=== PATIENT | female | born 1945 | race Caucasian/White ===

== ENCOUNTER 2019-01-19 21:40 | Inpatient (IN) | payer MEDICARE, OTHER ==
[~2019-01-19] VITALS: Ht 162.6 cm; Wt 58.1 kg
[~2019-01-19 21:40] MED LIST: ACTOS 45 MG45 M1 PO; ADULT LOW DOSE81 MG PO; ALTOPREV40 M1 PO; ATIVAN1 MG PO; CEPHALEXIN 500500 M3 PO; CIPROFLOXACIN500 M1 PO; EFFEXOR XR150 MG PO; FLAGYL500 MG PO; GLIPIZIDE; GLIPIZIDE 10 MG10 MG PO; HYDROCODONE-AP1 EAC6 PO; MACROBID 100 M100 M2 PO; MELOXICAM7.5 MG PO; METFORMIN 500500 MG PO; METFORMIN HCL500 MG PO; NAPROSYN500 MG PO; NORCO 5-325 TA1 EACH PO; OMEPRAZOLE 20 M20 M1 PO; PREDNISONE 10 M10 MG PO; SUPER B COMPLE1 EAC2 PO; VENTOLIN HFA 1818 GM INH; VITAMIN D35000 UNI1 PO; VITAMINS; ZPAK PO
[2019-01-19 21:55] VITALS: BP 114/66
[2019-01-19 22:13] LABS: ABSOLUTE BASOPHILS 0.1 thou/uL (0.0-0.2); ABSOLUTE LYMPHOCYTES 1.2 thou/uL (0.8-5.3); ABSOLUTE MONOCYTES 0.6 thou/uL (0.0-1.2); ABSOLUTE NEUTROPHILS 11.1 thou/uL (1.6-8.1); BASOPHILS 0.7 %; EOSINOPHILS 0.1 %; HEMATOCRIT 41.2 % (37.0-47.0); HEMOGLOBIN 13.7 gm/dL (12.0-15.0); LYMPHOCYTES 9.4 %; MCH 29.2 pg (26.0-34.0); MCHC 33.2 g/dL (28.0-37.0); MONOCYTES 4.9 %; MPV 8.2 fl. (7.2-11.1); NUCLEATED RBCS 0 /100WBC; PLATELET COUNT* 399 thou/uL (150-400); POLYS 84.9 %; RBC 4.68 mil/uL (4.20-5.00); RDW-CV 13.1 % (10.5-14.5)
[2019-01-19 22:25] LABS: APTT 24.4 Seconds (25.0-31.3); INR 1.1; PROTIME 10.8 Seconds (9.20-11.50)
[2019-01-19 22:32] LABS: ALBUMIN 2.3 g/dL (3.4-5.0); ALKALINE PHOSPHATASE 169 U/L (46-116); ANION GAP 10 mmol/L (7-16); BUN 24 mg/dL (7-18); CALCIUM 9.3 mg/dL (8.5-10.1); CHLORIDE 92 mmol/L (98-107); CO2 29 mmol/L (21-32); CREATININE 1.4 mg/dL (0.6-1.3); MAGNESIUM 1.9 mg/dL (1.8-2.4); POTASSIUM 3.9 mmol/L (3.5-5.1); SGOT 11 U/L (15-37); SGPT 13 U/L (30-65); SODIUM 131 mmol/L (136-145); TOTAL BILIRUBIN 0.3 mg/dL (<0.1-1.0); TOTAL PROTEIN 7.7 g/dL (6.4-8.2)
[2019-01-19 22:33] LABS: GLUCOSE 770 mg/dL (70-99)
[2019-01-19 22:35] VITALS: BP 112/80
[2019-01-19 22:49] LABS: CHOLESTEROL 171 mg/dL (<200); HDL CHOLESTEROL 22 mg/dL (>40); LDL CHOLESTEROL 95 mg/dL (<100); TC:HDL 7.8 Ratio (Not establshd); TRIGLYCERIDE 273 mg/dL (<150); VLDL 55 mg/dL (<40)
[2019-01-19 22:53] LABS: SERUM ASSESSMENT Slight Lipemia
[2019-01-20] VITALS (26 sets, daily range): BP systolic 95–153; BP diastolic 51–114
[2019-01-20 01:19] LABS: HEMOGLOBIN 12.7 gm/dL (12.0-15.0); MCH 28.6 pg (26.0-34.0); MCHC 33.5 g/dL (28.0-37.0); MCV 85.5 fL (80.0-100.0); MPV 8.1 fl. (7.2-11.1); RBC 4.44 mil/uL (4.20-5.00); WBC 14.1 thou/uL (4.0-11.0)
[2019-01-20 01:32] LABS: CALCIUM 8.9 mg/dL (8.5-10.1); POTASSIUM 3.9 mmol/L (3.5-5.1); TOTAL BILIRUBIN 0.4 mg/dL (<0.1-1.0); TOTAL PROTEIN 7.1 g/dL (6.4-8.2)
[2019-01-20 01:35] LABS: TROPONIN-I LEVEL 0.61 ng/mL (<0.06)
--- NOTE | 2019-01-20 06:13 | NUR ---
ADMITTED TO ICU BED 4 AT 0010, SEE ASSESSMENTS. R GROIN ARTERIAL SHEATH IN PLACE UPON ARRIVAL TO UNIT, BUHR MILL OPERATOR RETURNED AT 0200 TO REMOVE SHEATH. HOMEOSTASIS OBTAINED APPROXIMATELY 0230, DRSG C/D/I SINCE THAT TIME. INSULIN GTT INITIATED AT 0115 WHEN STAT BG RESULTS WERE RECEIVED, NS AT 100ML/HR UNTIL BG REACHES 250 THEN TO BE CHANGED TO D5NS AT 100ML/HR. BG MONITORED Q1HR AND INSULIN GTT TITRATED PER PROTOCOL. C/O ABD PAIN TREATED WITH PRN MORPHINE X2 WITH RELIEF OF SYMPTOMS. PT HAS BEEN REPOSITIONED Q2HR WITH SLIGHT TILTING DUE TO RLE IMMOBILIZATION. PT EDUCATED ON IMMOBILIZATION AND THAT IT WILL AT 0730, VERBALIZED UNDERSTANDING. CALL LIGHT WITHIN REACH.
--- NOTE | 2019-01-20 06:36 | NUR ---
CURRENT BG 253, IVF CHANGED TO D5NS PER PROTOCOL
[2019-01-20 09:40] LABS: URINE BLOOD 3+ (Negative); URINE CLARITY CLOUDY; URINE COLOR YELLOW; URINE GLUCOSE-RANDOM 2+ (Negative); URINE KETONES NEGATIVE (Negative); URINE NITRITE-REFLEX NEGATIVE (Negative); URINE PROTEIN 2+ (Negative); URINE UROBILINOGEN 0.2 E.U./dl (0.2-1.0)
[2019-01-20 09:52] LABS: URINE BILIRUBIN 1+ (Negative); URINE LEUKOCYTES-REFLEX 2+ (Negative)
[2019-01-20 09:53] LABS: ICTOTEST (BILI CONFIRMATORY) Negative (Negative)
[2019-01-20 10:11] LABS: SQUAMOUS 4-10 Moderate /LPF (0-3); URINE WBC-REFLEX >25 Many /HPF (0-5)
[2019-01-20 10:12] LABS: BACTERIA-REFLEX >30 Many /HPF (None Seen); CASTS None Seen /LPF (None Seen); CRYSTALS None Seen /LPF (None Seen); URINE RBC >20 Many /HPF (0-2)
--- NOTE | 2019-01-20 10:26 | EKG ---
[place] [address] ELECTROCARDIOGRAM REPORT Name: DEV TRACY Room: [address] ADM IN .R.#: [id number] Admission: 01/19/19 Attend Phys: Chelsey Hair MD Discharge: Date of : 49 Report #: [id number] THIS REPORT FOR: //name// [facility] ED Test Date: 2019-01-19 Test Time: 21:46:42 Pat Name: DEV TRACY Department: Room: [facility] Gender: F Director Shopper Marketing: 10 : 1945 Requested By: Peggy Pedro Order Number: [id number] MD: Beck Hooks Measurements Intervals [place] Rate: 94 P: -21 IA: 169 QRS: 3 QRSD: 101 T: 89 QT: 338 QTc: 423 Interpretive Statements Sinus rhythm Inferior infarct, acute (RCA) Probable anterior infarct, old Lateral leads are also involved Probable RV involvement, suggest recording right precordial leads No previous ECG available for comparison Electronically Signed On 01-20-2019 10:25:46 RAG WILLOW OPERATOR by Beck Hooks [email or web address] <ELECTRONICALLY SIGNED> By: Beck Hooks MD, FACC 01/20/19 1025 2146 Beck Hooks MD, [facility] /EPI
--- NOTE | 2019-01-20 11:01 | CARD ---
[address] [address] CARDIAC CATH REPORT Name: DEV TRACY Room: [address] IN [facility].#: [id number] Admission: 01/19/19 Attend Phys: Chelsey Hair MD Discharge: Date of : 49 Report #: [id number] THIS REPORT FOR: //name// APPROVED REPORT Study performed: 01/19/2019 22:22:40 Patient Details Patient Status: ED Room #: The patient is a 73 year-old female Event Personnel Abdoul Germain Gas Well Pumper, Isa Doherty RN, [place], Brad RCIS ScrubJony Jessie RTR Monitor Procedures Performed Art Access - R femoral artery Left Heart Cath w/or w/o Coronaries [facility] w/wo Plasty Single RCA Hemostasis with Manual pressure Indication STEMI (>0 to less than or equal to 6 hours), Dyspnea, Chest pain, The patient presented with right lower abdominal discomfort, noted to have ST segment elevation in the inferolateral leads on the electrocardiogram. Risk Factors Chronic Lung DiseaseHypercholesterolemia, Diabetes Tobacco History () Procedure Narrative The patient was brought emergently to the Cardiac Catheterization Laboratory and was prepped and draped in a sterile manner. A 6fr Ultimum Sheath sheath was inserted into the right femoral artery. Coronary angiography was performed using coronary diagnostic catheters. The right coronary system was accessed and visualized with a Diagnostic JR 4 6F catheter. The left coronary system was accessed and visualized with a Diagnostic JL 4 6F catheter. The left ventricle was accessed and visualized with a Diagnostic PIG 6F catheter. Left ventricular/Aortic Valve gradient assessed via catheter pullback. Left ventriculogram was performed in TERAN projection. Hemostasis was obtained with manual pressure following sheath removal without any complications. The patient tolerated the procedure well and there were no complications associated with the procedure. There [place] [address] CARDIAC CATH REPORT Name: DEV TRACY Room: [address] IN ..#: [id number] Admission: 01/19/19 Attend Phys: Chelsey Hair MD Discharge: Date of : 49 Report #: [id number] Intraoperative Conscious Sedation Sedation start time: 1037 Case end Time: 1128 Fentanyl 25 mcg Versed 1 mg Fluoro Time: 20.0 minutes Dose: DAP 38073 cGycm2 1389 mGy Contrast Type and Amount: Visipaque 200 ml Coronary Angiography The patient's coronary anatomy is right dominant. Diagnostic Cath Left Main This is a large caliber vessel with mild disease at the ostium. LAD This is a moderate size caliber vessel, traversing the anterior wall and terminating at the apex. There is a moderate stenosis within the mid segment, just after the takeoff of the first diagonal artery, approximately 50%. Diagonal 1 This is a patent vessel, with no flow-limiting lesions. Circumflex This is a tortuous and calcified vessel with a severe occlusion in the proximal segment, 80%. OM1 This is a moderate size caliber vessel, patent with no flow-limiting lesions. Right Coronary This is a dominant vessel, tortuous and calcified throughout. There is a severe subtotal occlusion in the mid segment, 99%. The PDA is partially filled from collaterals from the LAD. The distal RCA is a small to moderate size caliber vessel, with mild to moderate diffuse disease. R PDA This is a patent vessel, with no flow-limiting lesions. RPLV There is small to moderate size caliber vessel with a borderline lesion in the proximal segment, 70%. Left Ventriculography The left ventricle is normal in size with decreased contractility. The left ventricular ejection fraction is estimated to be 35-40%. Left ventricular wall motion abnormalities are present. There is hypokinesis of the inferior wall. Hemodynamics The aortic pressure is 139/3 mmHg with a mean of 27 mmHg. The left ventricular pressure is 126/-3 mmHg with a mean of mmHg. The left ventricular end diastolic pressure is 20 [place] [address] CARDIAC CATH REPORT Name: DEV TRACY Room: [address] IN M.R.#: [id number] Admission: 01/19/19 Attend Phys: Chelsey Hair MD Discharge: Date of : 49 Report #: [id number] PCI Technique Lesion Anticoagulation was achieved with Angiomax Drip. Patient was preloaded with Angiomax IV 10 ml. Percutaneous coronary intervention was performed on the mid right coronary artery. The lesion stenosis prior to intervention was 99% with EUGENIA 2 flow. A 6F JR 4.0 Guide Catheter was used to engage the Right ostium. A IG: Luge Wire 180 Interventional Guidewire was used to cross the lesion. BALLOON DILATION A Balloon catheter Mini Trek RX 2.0 X 12 was inserted and inflated up to 14.00atm for 19seconds. Additional Inflation: 14.00atm for 14seconds. Trek RX 2.5 x 12 inserted/ inflated for 14 sec @ 12 sarwat and 12 sec @ 12 sarwat. The initial guide catheter was a JR4, but did not offer enough support. This was switched to an Amplatz left 0.75 catheter. STENT DEPLOYMENT A drug-eluting stent Gentry RX Stent 2.5X12mm was inserted and inflated up to 18.00atm for 21seconds. POST STENT DEPLOYMENT BALLOON DILATION A Balloon catheter NC Trek RX 3.0 X 8 was inserted and inflated up to 16.00atm for 12seconds. Additional Inflation: 18.00atm for 13seconds. Final angiography reveals 5 % stenosis with EUGENIA 3 flow. Conclusion 1. Successful insertion of a drug-eluting stent into the subtotal occlusion in the mid RCA. 2. Severe occlusion in the left circumflex proximal segment, consider staged angioplasty. 3. Moderate disease in the mid LAD and borderline stenosis in a small RPL branch, recommend medical therapy. 4. Recommend dual antiplatelet therapy and aggressive risk factor management, including complete cessation of all tobacco products. <ELECTRONICALLY SIGNED> By: Abdoul Germain MD 01/20/19 1100 99 1100Abdoul Germain MD /INF
--- NOTE | 2019-01-20 14:18 | NUR ---
INTERDISICPLINARY ROUNDS: MET WITH PT AND SON/LUDY. PT LIVES WITH SPOUSE, SON LUDY AND GRANDDTR. SHE IS NORMALLY INDEPENDENT. USES NO EQUIPMENT. PT HAS HAD HH IN THE PAST. NOT BEEN TO SNF. SPOUSE IS DPOA. PT PLANS TO RETURN HOME AT IN. WILL FOLLOW
--- NOTE | 2019-01-20 15:16 | EKG ---
[place] [address] ELECTROCARDIOGRAM REPORT Name: DEV TRACY Room: [address] ADM IN M.R.#: [id number] Admission: 01/19/19 Attend Phys: Chelsey Hair MD Discharge: Date of : 49 Report #: [id number] THIS REPORT FOR: //name// [facility] Test Date: 2019-01-20 Test Time: 10:32:22 Pat Name: DEV TRACY Department: Room: [address] Gender: F Civil Engineering Teacher: : 1945 Requested By: Abdoul Germain Order Number: [id number] Reading MD: Beck Hooks Measurements Intervals [place] Rate: 89 P: -16 TN: 141 QRS: -25 QRSD: 95 T: 111 QT: 338 QTc: 412 Interpretive Statements Sinus rhythm Inferior infarct, acute (RCA) Compared to ECG 01/19/2019 21:46:42 Myocardial infarct finding still present Electronically Signed On 01-20-2019 15:15:49 SEWAGE PLANT ATTENDANT by Beck Hooks [email or web address] <ELECTRONICALLY SIGNED> By: Beck Hooks MD, [facility] 01/20/19 1515 1032 103 Beck Hooks MD, [facility] /EPI
--- NOTE | 2019-01-20 17:29 | NUR ---
THIS INDUSTRIAL TECHNOLOGY EDUCATION TEACHER ASSUMED CARE OF PT AT 0700 AFTER RECEIVING SHIFT REPORT. PT PORGRESSED TOWARD GOALS TODAY ADVANCED FROM NPO TO CARB CONTROLLED DIET. INSULIN GTT D/C ACHS BLOOD SUGARS WITHIN NORMAL RANGE. R GROIN SITE SLIGHTLY BRUSIED FROM CATH NO HEMATOMA DRESSING DRY AND INTACT PT ABLE TO GET UP OF 0800. PT WAS C/O SEVERE PAIN AND BURNING WITH URINATION UA SENT TO LAB POSITIVE FOR UTI ABT THERAPY STARTED AND PAIN MED GIVEN HYDROCODONE 10/325 FOR PAIN 10/10 SON IN ROOM THROUGHOUT DAY PT RESTING IN ROOM.
[2019-01-21] VITALS (18 sets, daily range): BP systolic 90–119; BP diastolic 44–64
--- NOTE | 2019-01-21 11:01 | NUR ---
ICU rounds: Pt admitted with CP, cath done. Pt to have an u/s of right groin. Uncontrolled DM. Pt on psych meds. ABX for UTI. Off insulin gtt. Tele status. Pt will likely need SNF.
[2019-01-21 11:03] LABS: ABSOLUTE BASOPHILS 0.1 thou/uL (0.0-0.2); ABSOLUTE EOSINOPHILS 0.1 thou/uL (0.0-0.7); ABSOLUTE LYMPHOCYTES 1.9 thou/uL (0.8-5.3); ABSOLUTE MONOCYTES 0.6 thou/uL (0.0-1.2); ABSOLUTE NEUTROPHILS 11.1 thou/uL (1.6-8.1); BASOPHILS 0.8 %; EOSINOPHILS 0.4 %; HEMATOCRIT 33.6 % (37.0-47.0); MCH 28.5 pg (26.0-34.0); MCHC 32.9 g/dL (28.0-37.0); MCV 86.7 fL (80.0-100.0); MONOCYTES 4.5 %; NUCLEATED RBCS 0 /100WBC; PLATELET COUNT* 417 thou/uL (150-400); POLYS 80.3 %; RBC 3.87 mil/uL (4.20-5.00); RDW-CV 13.2 % (10.5-14.5); WBC 13.8 thou/uL (4.0-11.0)
[2019-01-21 11:12] LABS: ALBUMIN 1.9 g/dL (3.4-5.0); CALCIUM 8.5 mg/dL (8.5-10.1); CREATININE 0.9 mg/dL (0.6-1.3); MAGNESIUM 1.7 mg/dL (1.8-2.4); PHOSPHORUS* 2.4 mg/dL (2.5-4.9); POTASSIUM 3.3 mmol/L (3.5-5.1); TOTAL BILIRUBIN 0.2 mg/dL (<0.1-1.0); TOTAL PROTEIN 6.3 g/dL (6.4-8.2)
--- NOTE | 2019-01-21 13:11 | NUR ---
CONTACT DR. LEHMAN ABOUT PT'S ELEVATED LUNCH GLUCOSE AND HE WILL WRITE SOMETHING FOR IT. REPORT GIVEN TO ELMA PALAFOX.
--- NOTE | 2019-01-21 14:01 | NUR ---
1330- REPORT GIVEN TO ELMA SWEENEY.
--- NOTE | 2019-01-21 15:16 | EKG ---
[place] [address] ELECTROCARDIOGRAM REPORT Name: ROSSANADEV Benitez Room: [address] ADM IN M.R.#: [id number] Admission: 01/19/19 Attend Phys: Chelsey Hair MD Discharge: Date of : 49 Report #: [id number] THIS REPORT FOR: //name// [facility] Test Date: 2019-01-21 Test Time: 11:34:31 Pat Name: DEV TRACY Department: Room: [address] Gender: F Body Shop Mechanic: : 1945 Requested By: Beck Hooks Order Number: [id number] Reading MD: Chidi Stark Measurements Intervals [place] Rate: 84 P: 54 MD: 161 QRS: -12 QRSD: 100 T: 115 QT: 391 QTc: 463 Interpretive Statements Sinus rhythm Borderline low voltage, extremity leads Nonspecific T-wave abnormality Delayed R-wave progression Compared to ECG 01/20/2019 10:32:22 Myocardial infarct finding no longer present Electronically Signed On 01-21-2019 15:16:37 GARAGE DOOR OPENER INSTALLER by Chidi Stark [email or web address] <ELECTRONICALLY SIGNED> By: Chidi Stark MD, FACC 01/21/19 1516 1134 1134 Chidi Stark MD, FAC /EPI
--- NOTE | 2019-01-21 15:50 | NUR ---
PT PROGRESSING TOWARDS GOALS THIS SHIFT. ASSUMED CARE OF PT AROUND 1315 TODAY. REPORT RECEIVED FROM PREVIOUS RN. PT NOTED TO HAVE PSEUDOANEURYSM TO RT GROIN. US AWARE AND ANTICIPATE THROMBIN INJECTION TO SITE TOMORROW WITH DR. RUIZ. PHYSICIAN AWARE OF PT'S BLOOD SUGARS AND ADJUSTED MEDICATIONS INDICATED. PT C/O PAIN TO RIGHT GROIN SITE WITH LIGHT PALPATION. NO OTHER CONCERNS AT THIS TIME. CLWR. WCTM.
--- NOTE | 2019-01-21 16:01 | NUR ---
Cardiac Rehab. Attempted to continue education but patient unable to focus on materials being presented. States she is having some anxiety about family not being present. Will try again tomorrow.
[2019-01-22] VITALS (19 sets, daily range): BP systolic 92–128; BP diastolic 42–70
[2019-01-22 10:18] LABS: ABSOLUTE BASOPHILS 0.1 thou/uL (0.0-0.2); ABSOLUTE EOSINOPHILS 0.1 thou/uL (0.0-0.7); ABSOLUTE LYMPHOCYTES 1.8 thou/uL (0.8-5.3); ABSOLUTE MONOCYTES 0.6 thou/uL (0.0-1.2); ABSOLUTE NEUTROPHILS 10.1 thou/uL (1.6-8.1); BASOPHILS 1.1 %; EOSINOPHILS 0.5 %; HEMATOCRIT 33.2 % (37.0-47.0); HEMOGLOBIN 10.9 gm/dL (12.0-15.0); MCH 28.6 pg (26.0-34.0); MCHC 32.9 g/dL (28.0-37.0); MCV 87.1 fL (80.0-100.0); NUCLEATED RBCS 0 /100WBC; PLATELET COUNT* 406 thou/uL (150-400); POLYS 79.4 %; RBC 3.81 mil/uL (4.20-5.00); WBC 12.7 thou/uL (4.0-11.0)
[2019-01-22 10:27] LABS: ALBUMIN 1.9 g/dL (3.4-5.0); CALCIUM 8.5 mg/dL (8.5-10.1); MAGNESIUM 1.6 mg/dL (1.8-2.4); POTASSIUM 3.7 mmol/L (3.5-5.1); TOTAL BILIRUBIN 0.2 mg/dL (<0.1-1.0); TOTAL PROTEIN 5.8 g/dL (6.4-8.2)
--- NOTE | 2019-01-22 12:13 | NUR ---
ICU rounds: Tele status. Stent placed yesterday. Thrombo injection today for psuedo aneurysm.
--- NOTE | 2019-01-22 17:44 | NUR ---
PT CARE ASSUMED AFTER REPORT. ASSESSMENT COMPLETE. PT TO US FOR THROMBIN INJECTION THIS AFTERNOON. PT MAY USE COMMODE OTHERWISE IS TO STAY IN BED PER DR CHAVEZ. PT C/O NAUSEA AND HEADACHE. PT VOMITED X2. PRN PAIN AND NAUSEA MEDICATION GIVEN. DR LEHMAN AND DR CHAVEZ HERE TO TALK WITH PT AND HER SON THIS AFTERNOON TO ADDRESS QUESTIONS THEY HAD. PT TO REMAIN IN ICU OVERNIGHT PER DR CHAVEZ. PT PROGRESSING TOWARDS GOALS.
[2019-01-23] VITALS (20 sets, daily range): BP systolic 86–115; BP diastolic 39–60
--- NOTE | 2019-01-23 07:31 | NUR ---
ASSESSMENT CHARTED. PATIENT SLEPT IN BED FOR MOST OF THE SHIFT. AROUND 0500, PATIENT WOKE UP COMPLAININ OF SEVERE HEADACHE AND WAS DISORIENTED TO TIME AND SITUATION. CALLED TO PHYSICIAN CONCERNED OF POSSIBLE STROKE SYMPTOMS AND STAT HEAD CT WAS ORDERED. SPEECH WAS MILDLY SLURRED AND PATIENT REMAINED FORGETFUL AND DISORIENTED WITH CONSISTENT REORIENTATION. PATIENT SCHEUDLED FOR ULTRASOUND OF GROIN SITE TO CONFIRM SUCCESS OF PSEUDOANEURYSM REPAIR. HELD EVENING CARVEDILOL CITING LOWERED BLOOD PRESSURE. WCTM.
--- NOTE | 2019-01-23 08:02 | CON ---
[address] [address] CONSULTATION Name: DEV TRACY Room: [address] IN .R.#: [id number] Admission: 01/19/19 Attend Phys: Chelsey Hair MD Discharge: Date of : 49 Report #: [id number] THIS REPORT FOR: //name// CC: NITISH physician/PCP Chelsey Hair DATE OF SERVICE: 01/19/2019 CARDIOLOGY CONSULTATION INDICATION: Chest pain, equivalent. HISTORY OF PRESENT ILLNESS: This is a 73-year-old female with a history of diabetes mellitus, hypercholesterolemia, lung cancer, tobacco use, presenting with abdominal pain. She describes intermittent right lower abdominal pain for the past several weeks, on and off. She denies any symptoms of chest pains, shortness of breath, palpitations or orthopnea. There has been no recent fever, chills or diarrhea. Today, the pain became more intense and she called 911. The initial EKG by EMS was unremarkable. She complained of increasing abdominal pain and a repeat EKG revealed ST segment elevation in the inferolateral leads. PAST MEDICAL HISTORY: 1. Lung cancer, status post lobectomy and chemotherapy. 2. Chronic tobacco use. 3. Diabetes mellitus. 4. Hypercholesterolemia. ALLERGIES: SULFA. MEDICATIONS: Include metformin, glyburide, and Pravachol. SOCIAL HISTORY: Presently smoking cigarettes and vaping as well. FAMILY HISTORY: Negative for premature CAD. REVIEW OF SYSTEMS: A full 10-point review of systems performed. Only the pertinent positives and negatives are described in the HPI. PHYSICAL EXAMINATION: VITAL SIGNS: Blood pressure is 106/60. Heart rate is 83 beats per minute. GENERAL APPEARANCE: This is an elderly appearing female, in mild distress. HEENT: Normocephalic, atraumatic. Oral mucosa moist. NECK: Supple. LUNGS: Clear to auscultation. CARDIAC: Regular rate and rhythm, S1, S2 positive. ABDOMEN: Soft, [place] [address] CONSULTATION Name: DEV TRACY Room: [address]#: [id number] Admission: 01/19/19 Attend Phys: Chelsey Hair MD Discharge: Date of : 49 Report #: [id number] EXTREMITIES: No edema, no cyanosis. LABORATORY VALUES: ECG reveals sinus rhythm, ST segment elevation in inferolateral leads with depression in the septal leads. ASSESSMENT AND PLAN: 1. Acute inferior wall myocardial infarction. The patient will be taken emergently to the Cardiac Shop Manager. The patient was given heparin, aspirin in the ER. 2. Diabetes mellitus, as per PCP. Continue with medications and check fingersticks. 3. Tobacco use, complete smoking cessation is highly recommended. 4. Hypercholesterolemia, we will start the patient on Lipitor. <ELECTRONICALLY SIGNED> By: Abdoul Germain MD 01/23/19 0802 2342 0033MD claire Sadler
[2019-01-23 09:22] LABS: ABSOLUTE BASOPHILS 0.1 thou/uL (0.0-0.2); ABSOLUTE EOSINOPHILS 0.1 thou/uL (0.0-0.7); ABSOLUTE LYMPHOCYTES 1.9 thou/uL (0.8-5.3); ABSOLUTE MONOCYTES 0.7 thou/uL (0.0-1.2); ABSOLUTE NEUTROPHILS 9.2 thou/uL (1.6-8.1); BASOPHILS 0.8 %; EOSINOPHILS 0.8 %; HEMOGLOBIN 11.2 gm/dL (12.0-15.0); LYMPHOCYTES 15.8 %; MCH 28.6 pg (26.0-34.0); MCV 86.8 fL (80.0-100.0); MONOCYTES 5.7 %; MPV 7.7 fl. (7.2-11.1); NUCLEATED RBCS 0 /100WBC; PLATELET COUNT* 468 thou/uL (150-400); POLYS 76.9 %; RBC 3.91 mil/uL (4.20-5.00); RDW-CV 13.1 % (10.5-14.5); WBC 11.9 thou/uL (4.0-11.0)
[2019-01-23 09:34] LABS: ALBUMIN 1.9 g/dL (3.4-5.0); CALCIUM 8.4 mg/dL (8.5-10.1); CREATININE 0.9 mg/dL (0.6-1.3); MAGNESIUM 1.8 mg/dL (1.8-2.4); POTASSIUM 3.3 mmol/L (3.5-5.1); TOTAL BILIRUBIN 0.2 mg/dL (<0.1-1.0); TOTAL PROTEIN 5.9 g/dL (6.4-8.2)
--- NOTE | 2019-01-23 11:13 | NUR ---
ICU rounds: Pt confused overnight, CT of head was ok. Psuedo aneurysm stable. U/s groin looks ok. Soft pressures. Payne in place. Possible tele status
--- NOTE | 2019-01-23 17:32 | NUR ---
PT IS A/O X4.VSS.DINING CAR CONDUCTOR IN PLACE WITH NO CHANGES.ULTRASOUND OF GROIN COMPLETED.CT OF HEAD COMPLETED.PT C/O HEADACHE-NEW MEDICATIONS GIVEN.PT HAS SLEPT MOST OF THE DAY.PT HAS REFUSED TO TURN Q2 HOURS BUT SHIFTS OWN WEIGHT IN BED.WILL CONTINUE TO MONITOR FOR DURATION OF SHIFT.
[2019-01-24] VITALS: BP 103/55
--- NOTE | 2019-01-24 01:36 | NUR ---
RECEIVED REPORT AND ASSUMED CARE AT 1900. VSS. CARDIAC MONITORING IN PLACE, PT DENIES COMPLAINTS OF PAIN. ASSESSMENT COMPLETED CHARTED. PT UP WITH ASSIST TO BSC. BED LOCKED IN LOWEST POSITION, CALL LIGHT WITHIN REACH, BED ALARM ON.
[2019-01-24 04:00] VITALS: BP 107/53
[2019-01-24 07:00] VITALS: BP 99/46
[2019-01-24 08:02] VITALS: BP 93/53
--- NOTE | 2019-01-24 08:34 | NUR ---
PT IS A/O X4,VSS,TRACING SR ON THE MONITOR.NO C/O PAIN.IV PATENT AND SALINE LOCKED.PT IS CALM AND COOPERATIVE.PT TO TRANSFER TO ROOM 228. REPORT CALLED TO MIKE.PT TRANSFFERED WITH TECH BY GONZALO @ 9419.
--- NOTE | 2019-01-24 09:00 | NUR ---
PT ARRIVED TO UNIT AT APPROX 0850 FROM ICU, REPORT RECVD FROM PATEL SANCHEZ. THIS NURSE READ AND AGREES WITH PREVIOUS NURSES REPORT. PT ORIENTED TO CALL LIGHT AND ROOM.
[2019-01-24 11:17] VITALS: BP 93/55
--- NOTE | 2019-01-24 11:41 | NUR ---
DISCUSSED WITH DR LEHMAN, PT READY FOR DC AND PLAN IS SNF. MET WITH PT AND SPOKE WITH SPOUSE OVER THE PHONE. AT FIRST THEY WANTED [facility] AND THEN CHANGED TO [facility]. REFERRAL FAXED TO BOTH FACILITIES AND AWAITING CALLS BACK
[2019-01-24 12:32] VITALS: BP 118/59
[2019-01-24] MEDS ORDERED: ASPIR-LOW81 MG PO (13:43)
[2019-01-24] MEDS ORDERED: BRILINTA90 MG PO (14:01)
[2019-01-24] MEDS ORDERED: LANTUS SUBQ (14:05)
[2019-01-24] MEDS ORDERED: REMERON15 M2 PO (14:27)
[2019-01-24] MEDS ORDERED: NORCO 5-325 TA1 EAC1 PO (15:23)
[2019-01-24] MEDS ORDERED: SPIRONOLACTONE25 MG PO (15:34)
--- NOTE | 2019-01-24 16:15 | NUR ---
PT DISCHARGED AT APPROX 1610, EDUCATED ON ALL DISCHARGE INSTRUCTIONS INCLUDING MEDICATIONS AND FOLLOW UP APPOINTMENTS. IV AND INDUSTRIAL MAINTENANCE INSTRUCTOR REMOVED, HOURLY ROUNDING COMPLETED, REPORT CALLED IN TO PATEL ZAMBRANO AT [facility]AB [facility].
== END 2019-01-24 16:10 | DRG 246 ==
LOC: M.CL 21:40 → M.ERS 21:40 → M.CL 22:14 → M.TBA-ER 23:49 → M.ICU 23:49 → M.2W 01-24 08:47
PROVIDERS: Internal Medicine; Internal Medicine Cardiovascular Disease; Personal Emergency Response Attendant; ADMIT Internal Medicine
DX: I21.19 ST elevation (STEMI) myocardial infarction involving other coronary artery of inferior wall (principal); E11.01 Type 2 diabetes mellitus with hyperosmolarity with coma; N39.0 Urinary tract infection, site not specified; R65.10 Systemic inflammatory response syndrome (SIRS) of non-infectious origin without acute organ dysfunction; I50.22 Chronic systolic (congestive) heart failure; E11.65 Type 2 diabetes mellitus with hyperglycemia; E78.00 Pure hypercholesterolemia, unspecified; E78.5 Hyperlipidemia, unspecified; I25.10 Atherosclerotic heart disease of native coronary artery without angina pectoris; F17.210 Nicotine dependence, cigarettes, uncomplicated; I25.5 Ischemic cardiomyopathy; F32.9 Major depressive disorder, single episode, unspecified; E83.42 Hypomagnesemia; I72.9 Aneurysm of unspecified site; Z85.118 Personal history of other malignant neoplasm of bronchus and lung; Z88.2 Allergy status to sulfonamides; Z92.21 Personal history of antineoplastic chemotherapy; Z71.6 Tobacco abuse counseling; Z82.49 Family history of ischemic heart disease and other diseases of the circulatory system; Z79.82 Long term (current) use of aspirin; Z79.899 Other long term (current) drug therapy